=== PATIENT | male | born 1945 | race Caucasian/White ===

== ENCOUNTER 2016-09-29 18:21 | Emergency (ER) | payer MEDICARE, BC ==
[2016-09-29] MEDS ORDERED: Enoxaparin 120 MG/0.8 ML Syringe SUBCUT ONE (18:56)
[2016-09-29] MEDS ORDERED: Enoxaparin 60 MG/0.6 ML Syringe ONE (19:04)
--- NOTE | 2016-09-29 19:39 | EDM.PDOC ---
ED HPI GENERAL MEDICAL PROBLEM - General Chief Complaint: Respiratory Problem Stated Complaint: shortness of breath Time Seen by Provider: 09/29/16 18:21 Source of Information: Reports: Patient History Limitations: Reports: No Limitations - History of Present Illness INITIAL COMMENTS - FREE TEXT/NARRATIVE: Pt is a 70/male with PMH of CAD, hypothyroidism, Hypertension, Diabetes and Gerd , presents to clinic today with c/o gradual onset of shortness of breath over the past 1 wk now. Pt is from [facility] , spends his summer here fishing. Pt claims the he feels pressure in his chest on and off and it gets worse when he starts to walk or exert. Has been getting worse. No chest pain, no fever, nausea vomiting. No sweating. No pain elicited by deep breathing or coughing. Pt has had pulmonary embolism 10 years ago. he was on coumadin for a while and was changed to xareltto by his primary care provider. He stopped taking it few months ago as his insurance does not cover it anymore. Also recently his Benicar was changed to hyzaar due to insurance coverage problem. Duration: Getting Worse, Intermittent, Waxing/Waning Location: Reports: Chest Quality: Reports: Pressure Severity: Moderate Improves with: Reports: None Worsens with: Reports: Movement Associated Symptoms: Reports: Shortness of Breath. Denies: Confusion, Chest Pain, Cough, Fever/Chills, Headaches, Nausea/Vomiting, Rash, Syncope, Weakness Past Medical History HEENT History: Reports: None Cardiovascular History: Reports: High Cholesterol, Hypertension Respiratory History: Reports: None Musculoskeletal History: Reports: Back Pain, Chronic, Osteoarthritis Endocrine/Metabolic History: Reports: Diabetes, Type II Oncologic (Cancer) History: Reports: None - Past Surgical History Other HEENT Surgeries/Procedures: no allergies Other GI Surgeries/Procedures: back pain with lifting per patient, no bowel bladder concerns Other Male Surgeries/Procedures: type 2 diabetes Other Neurological Surgeries/Procedures: neuropathy B LE below the knees, tibial region B Musculoskeletal Surgical History: Reports: Joint Replacement Other Musculoskeletal Surgeries/Procedures:: B knee pain, B shoulder , RC repairs, B knee OA, right knee TKR ED ROS GENERAL - Review of Systems Review Of Systems: See Below Constitutional: Denies: Fever, Chills, Weakness, Fatigue, Night Sweats HEENT: Denies: Rhinitis, Sinus Problem, Throat Pain, Throat Swelling Respiratory: Reports: Shortness of Breath. Denies: Wheezing, Pleuritic Chest Pain, Cough, Sputum, Hemoptysis Cardiovascular: Reports: Dyspnea on Exertion. Denies: Chest Pain, Edema, Lightheadedness, Syncope GI/Abdominal: Denies: Abdominal Pain, Decreased Appetite, Hematemesis, Nausea, Vomiting : Denies: Dysuria, Flank Pain, Frequency Musculoskeletal: Denies: Joint Pain, Joint Swelling, Muscle Pain, Muscle Stiffness Skin: Denies: Bruising, Pruritis, Rash Neurological: Denies: Confusion, Syncope, Tingling Psychiatric: Denies: Agitation, Anxiety ED EXAM, GENERAL - Physical Exam Exam: See Below General Appearance: Alert, WD/WN, No Apparent Distress Eye Exam: Bilateral Eye: EOMI, PERRL Ears: Normal External Exam, Normal Canal, Hearing Grossly Normal, Normal TMs Ear Exam: Bilateral Ear: Auricle Normal, Canal Normal, TM normal Nose: Normal Inspection, Normal Mucosa, No Blood Throat/Mouth: Normal Inspection, Normal Lips, Normal Teeth, Normal Gums, Normal Oropharynx, Normal Voice, No Airway Compromise Head: Atraumatic, Normocephalic Neck: Normal Inspection, Supple, Non-Tender, Full Range of Motion Respiratory/Chest: No Respiratory Distress, Lungs Clear, Normal Breath Sounds, No Accessory Muscle Use, Chest Non-Tender Cardiovascular: Normal Peripheral Pulses, Regular Rate, Rhythm, No Edema, No Gallop, No JVD, No Murmur, No Rub Peripheral Pulses: 2+: Radial (L), Radial (R), Posterior Tibial (L), Posterior Tibial (R) GI/Abdominal: Normal Bowel Sounds, Soft, Non-Tender, No Organomegaly, No Distention, No Abnormal Bruit, No Mass Back Exam: Normal Inspection, Full Range of Motion, NT Extremities: Normal Inspection, Normal Range of Motion, Non-Tender, Normal Capillary Refill, No Pedal Edema Neurological: Alert, Oriented, CN II-XII Intact, Normal Cognition, Normal Gait, Normal Reflexes, No Motor/Sensory Deficits Psychiatric: Normal Affect, Normal Mood Skin Exam: Warm, Intact EKG INTERPRETATION EKG Date: 09/29/16 Rhythm: NSR [place]: normal P-wave: present QRS: normal ST-T: normal QT: normal Course - Vital Signs Text/Narrative:: Pt has been having gradual onset of shortness of breath with chest tightness. Dyspnea gets worse with exertion.I did get CBC and CMP which are within normal limits. EKG is is normal sinus rhythm. Considering his clinical symptoms and prior history of PE 10 years ago , I did get D-dimer, which is elevated at 2590. hence I did get a Ct angiogram of the chest, which does show large B/L pulmonary emboli in the distal main stems. At this point I did Contact [facility] and [facility]. As they did not have Senior Software Systems Engineer or pulmonary medicine care. i did contact [facility] and discuss patient;s finding with Dr. Galo the hospitalist work environment safety inspector. He did agree to accept patient. Advised to start patient on Anticoagulation with Lovenox. Pt has received 120mg of lovenox subcutaaneous. Also as he has diabetes and has had contrast, I have started him on Normal saline 100ml IV maintain his renal function. Pt has been stable, but now very anxious about he PE. He is hemodyanmically stable for ALS ambulance transfer. further care as per - Orders/Labs/Meds Orders: Active Orders 24 hr Category Date Time Status Sodium Chloride 0.9% @ 100 MLS/HR(1,000ml) Med 09/29/16 19:45 Ordered Sodium Chloride 0.9% [Normal Saline] 1,000 ml IV ASDIRECTED Meds: Medications Discontinued Medications Generic Name Dose Route Start Last Admin Trade Name Freq PRN Reason Stop Dose Admin Enoxaparin Sodium 120 mg 09/29/16 18:56 09/29/16 19:07 Lovenox SUBCUT 09/29/16 18:57 120 mg ONETIME ONE Administration Enoxaparin Sodium Confirm 09/29/16 19:04 Lovenox Administered 09/29/16 19:05 Dose 120 mg .ROUTE .STK-MED ONE Departure - Departure Time of Disposition: 20:00 Disposition: DC/Tfer to Acute Hospital 02 Condition: fair Clinical Impression: Bilateral pulmonary embolism - Discharge Information Referrals: PCP,None [Primary Care Provider] - Forms: ED Department Discharge - Problem List & Annotations (1) Bilateral pulmonary embolism SNOMED Code(s): 77403285, 95619011 Code(s): I26.99 - OTHER PULMONARY EMBOLISM WITHOUT ACUTE COR PULMONALE Status: Acute Current Visit: Yes - Problem List Review Problem List Initiated/Reviewed/Updated: Yes - My Orders Last 24 Hours: My Active Orders 09/29/16 19:45 Sodium Chloride 0.9% @ 100 MLS/HR(1,000ml) Sodium Chloride 0.9% [Normal Saline] 1,000 ml IV ASDIRECTED - Assessment/Plan Last 24 Hours: My Active Orders 09/29/16 19:45 Sodium Chloride 0.9% @ 100 MLS/HR(1,000ml) Sodium Chloride 0.9% [Normal Saline] 1,000 ml IV ASDIRECTED Assessment:: B/l main stem pulmonary embolism Plan: t has been having gradual onset of shortness of breath with chest tightness. Dyspnea gets worse with exertion.I did get CBC and CMP which are within normal limits. EKG is is normal sinus rhythm. Considering his clinical symptoms and prior history of PE 10 years ago , I did get D-dimer, which is elevated at 2590. hence I did get a Ct angiogram of the chest, which does show large B/L pulmonary emboli in the distal main stems. At this point I did Contact [facility] and [facility]. As they did not have Senior Software Systems Engineer or pulmonary medicine care. i did contact [facility] and discuss patient;s finding with Dr. Galo the hospitalist work environment safety inspector. He did agree to accept patient. Advised to start patient on Anticoagulation with Lovenox. Pt has received 120mg of lovenox subcutaaneous. Also as he has diabetes and has had contrast, I have started him on Normal saline 100ml IV maintain his renal function. Pt has been stable, but now very anxious about he PE. He is hemodyanmically stable for ALS ambulance transfer. further care as per
[2016-09-29] MEDS ORDERED: Sodium Chloride 0.9% 1,000 ML IV SCH ×2 (19:45)
[2016-09-29] MEDS ORDERED: Diazepam 10 MG Tab PO ONE (20:01)
== END 2016-09-29 20:45 ==
LOC: LB.ED 18:21
DX: I26.99 Other pulmonary embolism without acute cor pulmonale (principal); I10 Essential (primary) hypertension; I25.10 Atherosclerotic heart disease of native coronary artery without angina pectoris; E78.00 Pure hypercholesterolemia, unspecified; E03.9 Hypothyroidism, unspecified; E11.9 Type 2 diabetes mellitus without complications; M19.90 Unspecified osteoarthritis, unspecified site; Z98.890 Other specified postprocedural states; K21.9 Gastro-esophageal reflux disease without esophagitis; R07.89 Other chest pain; R06.00 Dyspnea, unspecified; R93.8 Abnormal findings on diagnostic imaging of other specified body structures
CPT/HCPCS: 36415; 71020; 71260; 80053; 85025; 85379; 93005; 99285; A9270; J1650; J7040; J7050; Q9967